=== PATIENT | male | born 1995 | race Two or more races ===

== ENCOUNTER 2021-08-29 09:42 | Emergency (ER) | payer OTHER, SELFPAY ==
--- NOTE | ~2021-08-29 | XR_ITS ---
EXAMINATION: XR ANKLE, LEFT CLINICAL INFORMATION: Fall with left ankle pain and swelling COMPARISON: None TECHNIQUE: Four views of the left ankle. FINDINGS: No fracture or dislocation. The ankle mortise is congruent. Ankle joint effusion present. Prominent medial soft tissue swelling. XR/XR ankle LT min 3V IMPRESSION: Medial soft tissue swelling with ankle joint effusion. No acute osseous abnormality.
[2021-08-29 10:28] VITALS: BP 115/66; PULSE 61; RESP 18; TEMP 36.1; O2SAT 99; BMI 25.1
--- NOTE | 2021-08-29 10:43 | ED.LOWEXIN ---
HPI - Extremity Injury (Lower) General Chief Complaint: Extremity Injury, Lower Stated Complaint: lt ankle injury Time Seen by Provider: 08/29/21 10:43 Source: patient Mode of arrival: ambulatory Limitations: no limitations History of Present Illness HPI Narrative: 25-year-old male came in for evaluation of left ankle injury. Patient slipped and fell in the mud at 02:00 today, twisting his left ankle, striking the ankle in the edge of shed, complaining of left ankle pain with difficulty walking. No other injuries no head or neck injury. Related Data Allergies Allergy/AdvReac Type Severity Reaction Status Date / Time amoxicillin Allergy Rash Verified 08/29/21 10:31 Review of Systems Review of Systems: All other systems are reviewed and are negative Constitutional: Reports as per HPI and Reports no additional constitutional complaints Eyes: Reports as per HPI and Reports no additional eye complaints Reports system reviewed and no additional complaints, except as documented Cardiovascular: Reports as per HPI and Reports no additional cardiovascular complaints Respiratory: Reports as per HPI and Reports no additional respiratory complaints Gastrointestinal: Reports as per HPI and Reports no additional gastrointestinal complaints Genitourinary: Reports no additional female genitourinary complaints Musculoskeletal: Reports no additional musculoskeletal complaints Skin/Breast: Reports system reviewed and no additional complaints, except as docu Psychiatric: Reports no additional psychiatric complaints Endocrine: Reports no additional endocrine complaints Hematologic/Lymphatic: Reports no additional hematologic/lymphatic complaints Allergic/Immunologic: Reports no additional allergic/immunologic complaints Reports system reviewed and no additional complaints, except as documented and Reports Abnormal speech present [facility] Past Medical History Medical History No known health problems Social History Social History Advance Directives: No Advance Directives Information Provided: No Physical Exam Vital Signs: Vital Signs: Last Vital Signs Temp 97.0 F 08/29/21 10:28 Pulse 61 08/29/21 10:28 Resp 18 08/29/21 10:28 BP 115/66 08/29/21 10:28 Pulse Ox 99 08/29/21 10:28 Body Mass Index 25.1 vital signs have been reviewed as appeared to be correct. Blood pressure normal. Heart rate normal. Respiration rate normal. Temperature normal. Oxygen saturation normal. Appearance: Alert. Oriented X3. No acute distress. Head: Normal external exam. Normocephalic. Atraumatic. No Luz signs noted. No raccoon eyes noted Eyes: PERRLA. EOMI. Conjunctiva and sclera normal. Eyelids normal. ENT: TM's Normal. Pharynx normal. Uvula midline. Moist mucous membranes. No trismus noted. No drooling noted. No muffled voice noted. Neck: Normal inspection. Neck supple. FROM. No adenopathy. Thyroid Normal. No meningeal signs. No neck mass noted. CVS: Normal heart rate and rhythm. Heart sound normal. No murmurs noted. Pulses normal throughout. Respiratory: No respiratory distress. Painless inspiration. Breath sounds normal. No wheezes/rales/rhonchi noted. Chest nontender. No accessory muscle usage noted or decreased air movement noted. Abdomen: Soft and nontender. Bowel sounds normal in all 4 quadrants. No distention noted. No organomegaly noted. No visible injury noted. Back: No CVA tenderness. Full range of motion noted. Skin: Skin warm and dry. Normal skin color. Normal skin turgor. No rashes/lesions/lacerations noted. Extremities: Left ankle swelling, tenderness, no step-off, no deformity, neurovascular exam of left foot is intact.. Neuro: Oriented X 3. Cranial nerve exam: II-XII are grossly intact No motor deficit. No sensory deficit. Reflexes normal. Course Course Course Narrative: Assessment and plan. Left ankle sprain. Darrick wrap, elevation, ice, NSAIDs. MDM - Extremity Injury (Lower) Medical Records Attestation: I reviewed the patient's medical records. Imaging Data left knee x-ray: Radiologist's impression: Medial soft tissue swelling with ankle joint effusion. No acute osseous abnormality. Discharge Plan Discharge Clinical Impression: Ankle sprain and strain Patient Disposition: Home, Self-Care Instructions: Ankle Sprain (ED) Additional Instructions: use Darrick wrap, ice, elevation, NSAIDs. Referrals: Physician,None [Primary Care Provider] - 2 days Stand Alone Forms: Work/School Release
== END 2021-08-29 11:19 | disposition home or self-care (01) ==
PROVIDERS: Emergency Provider Emergency Medicine
DX: S93.402A Sprain of unspecified ligament of left ankle, initial encounter (principal); S96.912A Strain of unspecified muscle and tendon at ankle and foot level, left foot, initial encounter; X50.1XXA Overexertion from prolonged static or awkward postures, initial encounter; Y93.9 Activity, unspecified; Y92.9 Unspecified place or not applicable; Y99.9 Unspecified external cause status
CPT/HCPCS: 73610; 99283

== ENCOUNTER 2025-09-11 20:03 | Emergency (ER) | payer OTHER, SELFPAY ==
--- NOTE | ~2025-09-11 | XR_ITS ---
CLINICAL HISTORY: pain injury 3 views right hand Comparison: None Findings: There is a boxer's fracture of the distal aspect of the 5th metacarpal bone. No other fracture or dislocation.. No significant arthritic change. No erosions. No radiopaque foreign body. Impression: 1. Fifth metacarpal boxer's fracture. This document has been electronically signed by: Tony Sanchez MD on 09/11/2025 20:50:57
[2025-09-11 20:09] VITALS: BP 144/82; PULSE 87; RESP 18; TEMP 37.1; O2SAT 96; BMI 25.1
--- NOTE | 2025-09-11 20:54 | ED.EXTPRO ---
HPI - Extremity Problem General Chief complaint: Extremity Injury, Upper Stated complaint: right hand injury Time Seen by Provider: 09/11/25 20:20 Source: patient Limitations: no limitations History of Present Illness ED Provider: Jessica Collins PA-C HPI Narrative: 29-year-old male presents with right hand pain. Patient states he punched a wall, now having pain over dorsum of lateral hand. Patient able to move the 4th and 5th digits. Related Data Previous Rx's ?Medication ?Instructions ?Recorded ketorolac 10 mg tablet 10 mg PO Q6H PRN pain #20 tabs 09/11/25 oxycodone 5 mg tablet 5 mg PO Q8H PRN pain, severe #7 09/11/25 tabs Allergies Allergy/AdvReac Type Severity Reaction Status Date / Time amoxicillin Allergy Rash Verified 09/11/25 20:11 Review of Systems Review of Systems: Yes all other systems are reviewed and are negative Constitutional: Constitutional: Denies fatigue and Denies fever(s) Musculoskeletal: Musculoskeletal: Reports arthralgias, Reports joint swelling, Denies numbness and Denies tingling Neurologic: Denies numbness and Denies tingling Endocrine: Endocrine: Denies fatigue PMF Past Medical History Attestation statement: The following information was validated with the patient. Medical History No known health problems Social History Social History Smoked in Last 30 Days: Yes Use of substances other than those prescribed or required for medical reasons: No Advance Directives: No Advance Directives Information Provided: No Physical Exam Vital Signs: Vital Signs: Last Vital Signs Temp 98.7 F 09/11/25 20:09 Pulse 85 09/11/25 21:48 Resp 16 09/11/25 21:48 BP 139/90 H 09/11/25 21:48 Pulse Ox 98 09/11/25 21:48 O2 Del Method Room Air 09/11/25 21:48 BMI result Body Mass Index 25.1 Const: Other: Alert well-appearing Orientation/consciousness: patient oriented x3 Resp: Effort & Inspection: normal respiratory effort Cardio: Other: Normal peripheral perfusion Skin: Other: Warm dry no rash Neuro: General: patient oriented x3, gait normal, no focal motor deficits and CN's II-XI intact bilaterally Extrem: Other: Swelling and ecchymosis noted over the dorsum of the right hand inferior to the 4th and 5th digits, he is able to flex and extend at MCP, PIP and D IP, neurovascularly intact Psych: Other: Cooperative Medications Administered Discontinued Medications Generic Name Dose Route Start Last Admin Trade Name Rashmi PRN Reason Stop Dose Admin Ketorolac Tromethamine 15 mg 09/11/25 21:44 09/11/25 21:52 Ketorolac Tromethamine 15 Mg/Ml Vial IM 09/11/25 21:45 15 mg ONCE ONE Administration Lidocaine HCl 5 ml 09/11/25 20:55 09/11/25 21:22 Lidocaine Hcl 1 % 20 Ml Vial INFILTRATI 09/11/25 20:56 5 ml ONCE ONE Administration Oxycodone HCl 5 mg 09/11/25 21:44 09/11/25 21:52 Oxycodone Hcl Immed Release 5 Mg Tablet PO 09/11/25 21:45 5 mg ONCE ONE Administration Medical Decision Making Medical Decision Making MDM Narrative: 29-year-old male presents with right hand pain. Patient states he punched a wall, now having pain over dorsum of lateral hand. Patient able to move the 4th and 5th digits. No chronic issues History: Per patient I have considered the following differential diagnoses: Fracture, dislocation, contusion, sprain Plan: X-ray ordered from triage, the patient has sustained a boxer's fracture, we will place in an ulnar gutter splint, send with pain meds and give follow up with ortho I have independently reviewed the following tests: X-ray right hand:Findings: There is a boxer's fracture of the distal aspect of the 5th metacarpal bone. No other fracture or dislocation.. No significant arthritic change. No erosions. No radiopaque foreign body. Impression: 1. Fifth metacarpal boxer's fracture. Differential Diagnosis Differential Diagnoses: The differential diagnosis associated with the presentation includes See MDM Admission/Observation Consideration of admission/observation: Escalation of care including admission/observation considered Not applicable Radiology Impression Discussion of test interpretation with radiology: I have reviewed the radiologist's reading. Procedures Orthopedic Splinting/Casting Injury #1: Side: right Upper Extremity Injury Location: hand Upper Extremity Immobilizer: ulnar gutter Discharge Plan Discharge Clinical Impression: Boxer's fracture Qualifiers: Encounter type: initial encounter Fracture type: closed Qualified Code(s): S62.339A - Displaced fracture of neck of unspecified metacarpal bone, initial encounter for closed fracture Patient Disposition: Home, Self-Care Instructions: Boxer Fracture (ED) Additional Instructions: You sustained a boxer's fracture, see home care instructions. Keep the splint in place. I am providing you with a contact for our orthopedic service, call to schedule an appointment. Use the ketorolac as needed for pain this is an anti-inflammatory take it with food. Use the oxycodone as needed for further pain. Prescriptions: New oxycodone 5 mg tablet 5 mg PO Q8H PRN (Reason: pain, severe) Qty: 7 0RF Rx Instructions: Partial Fill upon patient request. ketorolac 10 mg tablet 10 mg PO Q6H PRN (Reason: pain) Qty: 20 0RF Rx Instructions: maximum total duration of 5 days from all oral, intranasal, or parenteral formulations, patient received an intramuscular dose of Toradol here in the emergency room Referrals: Lisbeth Montemayor MD [Physician, Hand Surgery] Referral Note: right boxer's fracture Interventions: ED Discharge Assessment Last Done: 09/11/25 22:02 Print Language: Macedonian
[2025-09-11] MEDS: Lidocaine HCl 1 % 20 ML VIAL 5 ML INFILTRATI (21:22)
[2025-09-11 21:48] VITALS: BP 139/90; PULSE 85; RESP 16; O2SAT 98
[2025-09-11] MEDS: oxyCODONE HCl Immed Release 5 MG TABLET PO (21:52)
[2025-09-11 22:02] VITALS: BP 139/90; PULSE 85; RESP 16; TEMP 36.6; O2SAT 98
== END 2025-09-11 22:02 | disposition home or self-care (01) ==
PROVIDERS: Emergency Provider Emergency Medicine
DX: S62.336A Displaced fracture of neck of fifth metacarpal bone, right hand, initial encounter for closed fracture (principal); W22.09XA Striking against other stationary object, initial encounter; Y93.9 Activity, unspecified; Y92.9 Unspecified place or not applicable; Y99.9 Unspecified external cause status; M79.641 Pain in right hand
CPT/HCPCS: 73130; 96372; 99284; J1885; J2003

== ENCOUNTER → 2025-09-11 20:20 | Outpatient (BNV) | payer OTHER, SELFPAY | PROVIDERS: Emergency Provider Emergency Medicine; Visit Provider Radiology Diagnostic Radiology | DX: S62.306A Unspecified fracture of fifth metacarpal bone, right hand, initial encounter for closed fracture (principal) | CPT/HCPCS: 73130 ==

== ENCOUNTER 2025-09-17 15:13 | Outpatient (REF) | payer OTHER, SELFPAY | END 2025-09-17 15:14 | disposition home or self-care (01) | LOC: HO.HOSX 15:13 | DX: Z13.89 Encounter for screening for other disorder (principal) ==

== ENCOUNTER 2025-09-21 08:18 | Outpatient (AMB) | payer OTHER, SELFPAY ==
[2025-09-21 08:28] VITALS: BMI 25.1
--- NOTE | 2025-09-21 08:28 | MHC.OFFVIS ---
Vital Signs 09/21/25 08:28 Height 5 ft 9 in Weight 170 lb BMI 25.1 Intake Visit Reasons: FC: RT 5th Metacarpal Boxer's Fx, DOI:09/11/25 Intake Note: Ovi is a 29 year old right hand dominant male, new patient, who presents today for an ED Follow Up status post Right 5th Metacarpal Boxer's Fracture, DOI:09/11/25 . Patient presented to [facility] ED on 09/11/25 complaining of Right 4th & 5th Digit Pain on the dorsum of the lateral hand from punching a wall. Patient was placed in an ulnar gutter splint. Today, patient complains of pain at the MCP of his 5th digit. He denies any finger locking, numbness, tingling. He is not taking anything for pain. He denies any other surgeries or injuries to the right hand. Patient works as an EMT. Allergies amoxicillin Allergy (Verified 09/21/25 08:28) Rash HPI HPI FC: RT 5th Metacarpal Boxer's Fx, DOI:09/11/25: Details: Ovi is a 29 year old right hand dominant male, new patient, who presents today for an ED Follow Up status post Right 5th Metacarpal Boxer's Fracture, DOI:09/11/25 . Patient presented to [facility] ED on 09/11/25 complaining of Right 4th & 5th Digit Pain on the dorsum of the lateral hand from punching the site of an ambulance. Patient reports he began to experience very significant pain immediately after injury, and was evaluated in the emergency department, where x-rays revealed displaced right 5th metacarpal neck fracture. Patient was placed in an ulnar gutter splint. Today, patient complains of pain at the MCP of his 5th digit. He denies any finger locking, numbness, tingling. He is not taking anything for pain. He denies any other surgeries or injuries to the right hand. 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 [facility] Medical History No known health problems Social History (Updated 09/21/25 @ 08:34 by ALLY Jimenez) Alcohol intake: current Patient Tobacco Use Status: Never used Tobacco e-Cigarette/Vaping Use: Currently Using Current occupational status: employed Current occupation: rt handed, EMT Review of Systems Const All systems reviewed & are unremarkable except as noted in HPI and below Physical Exam Vital Signs: BMI result Body Mass Index 25.1 Extrem Other: Patient is alert, oriented, and in no acute distress. Neuro: Normal sensation of the tips of all digits of the right hand at this time Vascular: Cap refill brisk Pain: Tenderness to palpation about right 5th metacarpal neck Discomfort with range of motion of the right hand ROM: With encouragement, patient is able to get close to making a closed fist, can extend all digits of the right hand fully and without difficulty Skin: No lacerations or abrasions. General: There is a head in palm deformity noted of the right 5th metacarpal No ecchymosis, erythema, or evidence of infection. Psych: Appears grossly normal Affect normal Attitude cooperative Results Reviewed Results Reviewed: X-rays obtained in the office today and independently reviewed by me, Juan Robertson PA-C, demonstrate displaced right 5th metacarpal neck fracture with approximately 50 degrees of apex dorsal angulation. Assessment & Plan Assessment & Plan (1) Displaced fracture of neck of right fifth metacarpal bone: Code(s): S62.336A - Displaced fracture of neck of fifth metacarpal bone, right hand, initial encounter for closed fracture Category: Medical Plan 1. Displaced right 5th metacarpal neck fracture Date of injury 09/11/2025 I educated the patient about the condition. I discussed both operative and nonoperative treatment options. The patient would like to proceed with surgery. The risks and benefits of operative treatment were discussed with the patient and the patient wishes to proceed with surgery. These risks include, but are not limited to, risk of damage to blood vessels, nerves, tendons, infection, recurrence, incomplete relief of preoperative symptoms, persistent pain, possible need for further surgery, and the risks associated with regional blocks and/or anesthesia. Plan is to take the patient to the operating room on 09/28/2025 for the following procedures: 1. Right 5th metacarpal CRPP versus ORIF under general anesthesia All of the preoperative paperwork including the consent was discussed today. All of the patient's questions were answered in the clinic today. The patient understands that they will be in contact with our surgical processor to discuss scheduling their procedure. Patient denies diabetes, blood thinners, asthma, heart issues, lung issues, kidney issues Patient does not take any medications on a regular basis Patient does report use of a vape, in his educated on the potential effects of smoking on bony healing and the benefits of smoking cessation Orders: Orders XR hand RT min 3V Today M79.641 - Pain in right hand Coding Level of Care Code New Pt Level 4 (88644) Diagnoses Displaced fracture of neck of right fifth metacarpal bone S62.336A
== END 2025-09-21 09:24 | disposition home or self-care (01) ==
DX: S62.336A Displaced fracture of neck of fifth metacarpal bone, right hand, initial encounter for closed fracture (principal)
CPT/HCPCS: 99204

== ENCOUNTER → 2025-09-21 08:19 | Outpatient (BNV) | payer OTHER, SELFPAY | PROVIDERS: Visit Provider Radiology Diagnostic Radiology | DX: M79.641 Pain in right hand (principal) | CPT/HCPCS: 73130 ==

== ENCOUNTER 2025-09-21 08:42 | Outpatient (REF) | payer OTHER, SELFPAY ==
--- NOTE | ~2025-09-21 | XR_ITS ---
EXAMINATION: XR HAND 3 OR MORE VIEWS RIGHT HISTORY: M79.641 - Pain in right hand COMPARISON: Comparison is made with the prior examination dated 09/11/2025. FINDINGS: Three views of the right hand are submitted. Osseous mineralization is normal. Again seen is a comminuted fracture of the 5th metacarpal neck. No significant callus formation is noted. The fracture lines remain visible. The joint spaces are preserved. The soft tissues are unremarkable. XR/XR hand RT min 3V IMPRESSION: Comminuted fracture of the 5th metacarpal neck without significant change. Electronically signed by: Marcio Garcia MD 09/21/2025 08:42 AM [facility]
== END 2025-09-21 08:43 | disposition home or self-care (01) ==
LOC: HO.HOSX 08:42
DX: S62.336A Displaced fracture of neck of fifth metacarpal bone, right hand, initial encounter for closed fracture (principal); W22.09XA Striking against other stationary object, initial encounter
CPT/HCPCS: 73130; 99202

== ENCOUNTER 2025-09-28 08:39 | Day surgery (SDC) | payer OTHER, SELFPAY ==
--- NOTE | ~2025-09-28 | FL_ITS ---
EXAMINATION: XR FLUOROSCOPY WITH IMAGES CLINICAL INFORMATION: ORIF COMPARISON: X-ray 09/21/2025 TECHNIQUE: Fluoroscopy time: 27 seconds DAP: 0.7 mGycm2 Images: 5 FINDINGS: Fluoroscopy provided in the operating room. Images related to internal fixation of a fifth metacarpal fracture. FL/FL guidance in OR IMPRESSION: Fluoroscopy provided in the operating room. See surgical report for details. Electronically signed by: Jayden Stern MD 09/30/2025 09:13 AM GUILLERMO
--- NOTE | 2025-09-28 08:53 | P.OP_ITS ---
Operative Note Operative Note Date of Service: 09/28/25 Narrative: Operative Note Narrative: Preop diagnosis: 1. Right 5th Metacarpal shaft fracture Postop diagnosis: Same Procedure: 1. Right 5th Metacarpal fracture closed reduction percutaneous pinning 2. Closed manipulation of right 5th MCP joint 3. Ulnar nerve block Surgeon: Lisbeth Montemayor MD Plumbing Installer: None Anesthesia: General Anesthesia Findings: Metacarpal fracture Implants: 0.062 K-wire x1 Tourniquet time: None EBL: Minimal Specimen: None Drains: None Complications: None Disposition: Brought to the recovery room in stable condition Plan: Follow-up in 10-14 days for a wound check, postop radiographs and for placement in a short-arm finger spica cast Anticipate K-wire removal in 4 weeks based on interval bony healing Educate the patient that full fracture healing anticipated in approximately 8-12 weeks. Indications: The patient is 29 years old with right 5th metacarpal shaft fracture, distal shaft with the injury being sustained about 2-1/2 weeks ago . The risks and benefits of operative treatment, including but not limited to risk of damage to blood vessels, nerves, tendons, infection, recurrence, delayed or nonunion of fracture, persistent pain or numbness, incomplete resolution of preoperative symptoms, or need for further surgery were discussed with the patient and they wished to proceed with surgery. Procedure: Once consent was obtained patient was brought back to the operating suite and placed in the operating table in a supine position. . Perioperative antibiotics and general anesthesia was administered by the anesthesia team. A tourniquet was applied to the proximal aspect of the right upper extremity and the limb was prepped and draped in a standard surgical fashion. Tourniquet was not inflated during the case. The FluoroScan was used during the case to assist with our fracture reduction and placement of all implants. A closed reduction was performed on the patient's right 5th metacarpal shaft fracture. There was already some evidence of early bony healing, but we were able to get a satisfactory reduction. He already also had quite a bit of stiffness with the 5th MCP joint being held in extension for extended period of time. I patiently performed a closed manipulation to bring that 5th MCP joint down into about 90 degrees of flexion. This then allowed me to place a single 0.062 K-wire retrograde through the head of the right 5th metacarpal advancing proximally across the fracture site to the base of the metacarpal. A 2nd K-wire was deemed unnecessary. Fracture alignment was assessed for both angular and rotational malalignment. Once satisfied with our fracture reduction and implant placement, the K-wires were bent and cut short and pin caps applied. Final fluoroscopic images were then obtained. The wounds were copiously irrigated with normal saline. An ulnar nerve block was then performed by infiltrating about the ulnar nerve at the wrist with some 1% lidocaine with epinephrine for postop pain control. A Sterile dressing and short volar splint was applied. The patient appears to have tolerated the procedure well and with no complications. All digits were well vascularized at the conclusion of the case.
--- NOTE | 2025-09-28 08:53 | MHC.SHP ---
Pre-Procedural Eval Section A - 24 Hr Update-Section A only Date of Service: 09/28/25 The patient is an INPATIENT: No Changes since office visit: No Cold of Flu in the past 2 weeks, No New Medical Problems, No Changes in Medication and No Patient answered all questions The patient has been examined within 24 hours of the surgical procedure. The History & Physical has been completed within 30 days and I have reviewed it.: Yes Section B - Complete if H&P > 30 days Chief Complaint: Displaced fracture of neck of fifth metacarpal bon Allergies: Allergies Allergy/AdvReac Type Severity Reaction Status Date / Time amoxicillin Allergy Rash Verified 09/21/25 08:28 Plan I have reviewed the history and physical and performed a pertinent physical examination on my patient. No changes have occurred unless specified. Time Spent With Patient Time: Total time managing care of this patient today ____ minutes.
[2025-09-28] MEDS: Lactated Ringers 1,000 ML 100 ML IVCONT (09:35)
[2025-09-28 09:42] VITALS: BP 124/81; PULSE 77; RESP 18; TEMP 37; O2SAT 98; BMI 25.7
--- NOTE | 2025-09-28 10:21 | P.CONAN_ITS ---
Documented by User: Lucila Terrell NP 09/22/25 11:34 HPI - Anesthesia Eval Consult details Narrative: 29 yr old male for right 5th CRPP vs ORIF Metacarpal PMFSH Active Problems Active Problems: All Active Problems Displaced fracture of neck of right fifth metacarpal bone (Acute) Past Medical History Medical History (Updated 09/21/25 @ 09:05 by LUISA Stock) No known health problems Surgical History Surgical History (Updated 09/28/25 @ 09:44 by Bina Woodard RN) History of esophagogastroduodenoscopy (EGD) Social History Social History (Updated 09/21/25 @ 08:34 by ALLY Jimenez) Are you a primary director of health care marketing to a significant other at home: No Do you presently have visiting nurse or other home services: No Alcohol intake: current Patient Tobacco Use Status: Current everyday Tobacco user Smoked in Last 30 Days: Yes e-Cigarette/Vaping Use: Currently Using Patient Interested in Nicotine Replacement: No Have you been hit, kicked, punched, or otherwise hurt by someone within the past year? If so, by whom?: No Are you DNR?: No Advance Directives: No Advance Directives Information Provided: Yes Current occupational status: employed Current occupation: rt handed, EMT Meds Allergies Allergy/AdvReac Type Severity Reaction Status Date / Time amoxicillin Allergy Rash Verified 09/28/25 09:44 Home Medications ?Medication ?Instructions ?Recorded ?Confirmed ?Last Taken ?Type No Known Home Meds 09/28/25 09/28/25 Un known History Documented by User: Nancy Vick DO 09/28/25 10:22 PMF Past Medical History Medical History (Updated 09/21/25 @ 09:05 by LUISA Stock) No known health problems Family History Family history of problems with anesthesia: No Surgical History Surgical History (Updated 09/28/25 @ 09:44 by Bina Woodard RN) History of esophagogastroduodenoscopy (EGD) History of Problems with Anesthesia: No Social History Social History (Updated 09/21/25 @ 08:34 by ALLY Jimenez) Are you a primary director of health care marketing to a significant other at home: No Do you presently have visiting nurse or other home services: No Alcohol intake: current Patient Tobacco Use Status: Current everyday Tobacco user Smoked in Last 30 Days: Yes e-Cigarette/Vaping Use: Currently Using Patient Interested in Nicotine Replacement: No Have you been hit, kicked, punched, or otherwise hurt by someone within the past year? If so, by whom?: No Are you DNR?: No Advance Directives: No Advance Directives Information Provided: Yes Current occupational status: employed Current occupation: rt handed, EMT Meds Allergies Allergy/AdvReac Type Severity Reaction Status Date / Time amoxicillin Allergy Rash Verified 09/28/25 09:44 Home Medications ?Medication ?Instructions ?Recorded ?Confirmed ?Last Taken ?Type No Known Home Meds 09/28/25 09/28/25 Un known History Exam Exam Date and Time: 09/28/25 1021 Height,Weight and Vital Signs: Height 5 ft 9 in Weight 79 kg Vital Signs Temperature 98.6 F 09/28/25 09:42 Pulse Rate 77 09/28/25 09:42 Respiratory Rate 18 09/28/25 09:42 Blood Pressure 124/81 09/28/25 09:42 Pulse Oximetry 98 09/28/25 09:42 Oxygen Delivery Method Room Air 09/28/25 09:42 Temperature 98.6 F 09/28/25 09:42 Pulse Rate 77 09/28/25 09:42 Respiratory Rate 18 09/28/25 09:42 Blood Pressure 124/81 09/28/25 09:42 Pulse Oximetry 98 09/28/25 09:42 Oxygen Delivery Method Room Air 09/28/25 09:42 Airway Mallampati Class: II TM Dist: >3cm Neck ROM: Full Loose/Missing/Broken Teeth: No (patient denies any loose or broken teeth) Heart: S1S2 Lungs: CTAB Assessment and Plan Assessment Anesthesia Assessment: Anesthesia Plan Discussed and Chart Reviewed Final Anesthetic Review Family History of Problems with Anesthesia: No History of Problems with Anesthesia: No NPO: Yes ASA Class: II Final Preanesthetic Review: No Changes in Pt Med Stat, Meds/Allgs Chart Reviewed, Consent Obtained/Reviewed and Anes Risks/Benef Reviewed Patient Risk: Low Procedure Risk: Low Anesthetic Plan Anesthetic Plan: GA and Agree w/ Assess. and Plan Disposition: Standard PACU
[2025-09-28 11:41] VITALS: BP 137/76; PULSE 53; RESP 14; TEMP 36.3; O2SAT 100
[2025-09-28 11:46] VITALS: BP 113/65; PULSE 55; RESP 15; O2SAT 100
[2025-09-28 11:51] VITALS: BP 115/64; PULSE 57; RESP 17; O2SAT 99
[2025-09-28 11:56] VITALS: BP 127/78; PULSE 70; RESP 20; O2SAT 100
[2025-09-28 12:11] VITALS: BP 135/89; PULSE 67; RESP 22; TEMP 36.5; O2SAT 100
== END 2025-09-28 12:36 | disposition home or self-care (01) ==
PROVIDERS: Visit Provider Orthopaedic Surgery
PROC: (CPT 26608; principal; 2025-09-28 10:20)
DX: S62.336A Displaced fracture of neck of fifth metacarpal bone, right hand, initial encounter for closed fracture (principal); M79.641 Pain in right hand; M25.641 Stiffness of right hand, not elsewhere classified; W22.09XA Striking against other stationary object, initial encounter; Y93.89 Activity, other specified; Y92.9 Unspecified place or not applicable; Y99.9 Unspecified external cause status; F17.290 Nicotine dependence, other tobacco product, uncomplicated; Z88.1 Allergy status to other antibiotic agents
CPT/HCPCS: 26608; J0131; J0690; J1100; J2003; J2004; J2250; J2405; J2704; J3010

== ENCOUNTER → 2025-09-28 08:39 | Outpatient (BNV) | payer OTHER, SELFPAY | PROVIDERS: Visit Provider Orthopaedic Surgery | DX: S62.326A Displaced fracture of shaft of fifth metacarpal bone, right hand, initial encounter for closed fracture (principal) | CPT/HCPCS: 26608 ==

== ENCOUNTER 2025-10-12 07:58 | Outpatient (REF) | payer OTHER, SELFPAY ==
--- NOTE | ~2025-10-12 | XR_ITS ---
EXAMINATION: XR HAND, RIGHT CLINICAL INFORMATION: M79.641 - Pain in right hand COMPARISON: X-ray 09/21/2025 TECHNIQUE: PA, lateral, and oblique views of the right hand. FINDINGS: There is internal fixation of the comminuted fifth metatarsal neck fracture. Hardware is intact. Improved near anatomic alignment. Mild callus formation. Mild soft tissue swelling. XR/XR hand RT min 3V IMPRESSION: Healing changes in the fifth metacarpal fracture, status post internal fixation. Electronically signed by: Jayden Stern MD 10/14/2025 07:37 AM EST
== END 2025-10-12 07:59 | disposition home or self-care (01) ==
LOC: HO.HOSX 07:58
DX: S62.336A Displaced fracture of neck of fifth metacarpal bone, right hand, initial encounter for closed fracture (principal); X58.XXXA Exposure to other specified factors, initial encounter
CPT/HCPCS: 73130; 99212

== ENCOUNTER 2025-10-12 13:50 | Outpatient (AMB) | payer OTHER, SELFPAY ==
--- NOTE | 2025-10-12 14:06 | A.OFFVIS_ITS ---
Vital Signs 10/12/25 14:09 Height 5 ft 9 in Weight 170 lb BMI 25.1 Intake Visit Reasons: PO-Rt 5th MC CRPP 09/28/25 Intake Note: Ovi is a 30 year old right hand dominant male who presents today for a Post- Operative Visit status post Right 5th Metacarpal CRPP, DOS: 09/28/[address] Montemayor. States his pain is tolerable and is doing well. Splints and dressing removed in office. Xrays updated in office Allergies amoxicillin Allergy (Verified 10/12/25 14:10) Rash HPI HPI PO-Rt 5th MC CRPP 09/28/25: Details: Ovi is a 30 year old right hand dominant male who presents today for a Post- Operative Visit status post Right 5th Metacarpal CRPP, DOS: 09/28/[address] Montemayor. States his pain is tolerable, rates worst pain he experiences at a 3 to 4/10, and is doing well. Splints and dressing removed in office. Xrays updated in office. [facility] Medical History (Updated 09/21/25 @ 09:05 by LUISA Stock) No known health problems Surgical History History of esophagogastroduodenoscopy (EGD) Social History Are you a primary insurance healthcare consultant to a significant other at home: No Do you presently have visiting nurse or other home services: No Alcohol intake: current Patient Tobacco Use Status: Current everyday Tobacco user e-Cigarette/Vaping Use: Currently Using Current occupational status: employed Current occupation: rt handed, EMT Review of Systems Const All systems reviewed & are unremarkable except as noted in HPI and below Physical Exam Vital Signs: BMI result Body Mass Index 25.1 Extrem Other: Patient is alert, oriented, and in no acute distress. Neuro: Normal sensation of the tips of all digits of the right hand at this time Vascular: Cap refill brisk Pain: Minimal Tenderness to palpation about right 5th metacarpal neck Very mild Discomfort with range of motion of the right hand ROM: With encouragement, patient is able to get close to making a closed fist, can extend all digits of the right hand fully and without difficulty Skin: Pin site clean, dry, intact No lacerations or abrasions. General: Pin does appear to have pulled out by a proximally 1 to 1-1/2 cm from surgery No ecchymosis, erythema, or evidence of infection. Psych: Appears grossly normal Affect normal Attitude cooperative Results Reviewed Results Reviewed: X-rays obtained in the office today and independently reviewed by me, Juan Robertson PA-C, demonstrate right 5th metacarpal fracture status post CRPP with fracture alignment in satisfactory clinical alignment. However, there is approximately 1-1.5 cm of pin retraction. Assessment & Plan Assessment & Plan (1) Displaced fracture of neck of right fifth metacarpal bone: Code(s): S62.336A - Displaced fracture of neck of fifth metacarpal bone, right hand, initial encounter for closed fracture Category: Medical Plan 1. Status post CRPP of right 5th metacarpal DOS 09/28/2025 Case was discussed with Dr. Montemayor, and a collaborative treatment plan was formed: At this time, patient will be placed into a short-arm cast Patient is educated on proper cast care and precautions No need for pulling pin at this time, as it is still stabilizing the fracture in the fracture is in satisfactory clinical alignment per Dr. Montemayor 2 lb weight limit until follow-up Patient is educated on the importance of keeping pin site clean and dry Patient understands this and is amenable to this plan Follow-up in 2 weeks with repeat x-rays for reassessment, anticipate pulling pin at that time, sooner with any acute concerns Orders: Orders XR hand RT min 3V 10/12/25 M79.641 - Pain in right hand Coding Level of Care Code Global (14044) Diagnoses Displaced fracture of neck of right fifth metacarpal bone S62.336A
[2025-10-12 14:09] VITALS: BMI 25.1
== END 2025-10-12 15:05 | disposition home or self-care (01) ==
LOC: HO.HOS 13:51
DX: S62.336A Displaced fracture of neck of fifth metacarpal bone, right hand, initial encounter for closed fracture (principal)
CPT/HCPCS: 99024

== ENCOUNTER → 2025-10-12 13:52 | Outpatient (BNV) | payer OTHER, SELFPAY | PROVIDERS: Visit Provider Radiology Diagnostic Ultrasound | DX: S62.306D Unspecified fracture of fifth metacarpal bone, right hand, subsequent encounter for fracture with routine healing (principal) | CPT/HCPCS: 73130 ==

== ENCOUNTER 2025-10-26 08:21 | Outpatient (REF) | payer OTHER, SELFPAY ==
--- NOTE | ~2025-10-26 | XR_ITS ---
EXAMINATION: XR HAND 3 OR MORE VIEWS RIGHT HISTORY: M79.641 - Pain in right hand COMPARISON: Comparison is made with the prior examination dated 10/12/2025. FINDINGS: Three views of the right hand are submitted. There is new marked osteopenia of the 5th metacarpal head. Again seen is internal fixation of the previously seen fracture of the 5th metacarpal with a K wire. The fracture lines remain visible. The joint spaces are preserved. The soft tissues are unremarkable. XR/XR hand RT min 3V IMPRESSION: Internal fixation of a fracture of the 5th metacarpal. There is new marked osteopenia of the 5th metacarpal head. While this may be reactive in nature, infection is not excluded. Clinical correlation is recommended. Electronically signed by: Marcio Garcia MD 10/26/2025 02:00 PM [facility]LLERMO BRISENO
== END 2025-10-26 08:22 | disposition home or self-care (01) ==
LOC: HO.HOSX 08:21
DX: S62.336D Displaced fracture of neck of fifth metacarpal bone, right hand, subsequent encounter for fracture with routine healing (principal); X58.XXXD Exposure to other specified factors, subsequent encounter
CPT/HCPCS: 73130; 99212

== ENCOUNTER 2025-10-26 13:29 | Outpatient (AMB) | payer OTHER, SELFPAY ==
--- NOTE | 2025-10-26 13:42 | A.OFFVIS_ITS ---
Vital Signs 10/26/25 13:46 Height 5 ft 9 in Weight 175 lb BMI 25.8 Intake Visit Reasons: PO-Rt 5th MC CRPP 09/28/25-W/XRAYS Intake Note: Ovi is a 30 year old right hand dominant male who presents today for a Post- Operative Visit status post Right 5th Metacarpal CRPP, DOS: 09/28/[address] Montemayor. At his last visit he was placed in a short arm cast. He was advised to remain at a 2 lb weight limit until follow-up. At today's visit we will be removing the patient's pin. Patient states that the right ring finger does have a numbness and tingling. Allergies amoxicillin Allergy (Verified 10/12/25 14:10) Rash HPI HPI PO-Rt 5th MC CRPP 09/28/25-W/XRAYS: Details: Ovi is a 30 year old right hand dominant male who presents today for a Post- Operative Visit status post Right 5th Metacarpal CRPP, DOS: 09/28/[address] Montemayor. At his last visit he was placed in a short arm cast. He was advised to remain at a 2 lb weight limit until follow-up. At today's visit we will be removing the patient's pin. Patient states that the right ring finger does have a numbness and tingling. Patient denies any ongoing pain [facility] Medical History (Updated 09/21/25 @ 09:05 by LUISA Stock) No known health problems Surgical History History of esophagogastroduodenoscopy (EGD) Social History Are you a primary day care aide to a significant other at home: No Do you presently have visiting nurse or other home services: No Alcohol intake: current Patient Tobacco Use Status: Current everyday Tobacco user e-Cigarette/Vaping Use: Currently Using Current occupational status: employed Current occupation: rt handed, EMT Physical Exam Vital Signs: BMI result Body Mass Index 25.8 Extrem Other: Patient is alert, oriented, and in no acute distress. Neuro: Normal sensation of the tips of all digits of the right hand at this time Vascular: Cap refill brisk Pain: No Tenderness to palpation about right 5th metacarpal neck No further Discomfort with range of motion of the right hand ROM: With encouragement, patient is able to get close to making a closed fist, can extend all digits of the right hand fully and without difficulty Skin: Pin site clean, dry, intact No lacerations or abrasions. General: Pin location stable since previous evaluation, was significantly retracted at previous evaluation No ecchymosis, erythema, or evidence of infection. Psych: Appears grossly normal Affect normal Attitude cooperative Results Reviewed Results Reviewed: X-rays obtained in the office today and independently reviewed by me, Juan Robertson PA-C, demonstrate right 5th metacarpal fracture status post CRPP with fracture alignment in satisfactory clinical alignment with evidence of interval bony healing. However, there is approximately 1-1.5 cm of pin retraction. Assessment & Plan Assessment & Plan (1) Displaced fracture of neck of right fifth metacarpal bone: Code(s): S62.336A - Displaced fracture of neck of fifth metacarpal bone, right hand, initial encounter for closed fracture Category: Medical Plan 1. Status post CRPP of right 5th metacarpal DOS 09/28/2025 Case was discussed with Dr. Montemayor, and a collaborative treatment plan was formed: Pins pulled in the office today without issue Patient was educated on proper pin site care and precautions 2 lb weight limit until follow-up Patient was provided with a Velcro wrist splint to wear with daytime activities as well as eber tape to use for the ring and small fingers whenever awake Patient understands this and is amenable to this plan Follow-up in 4 weeks with repeat x-rays for reassessment, sooner with any acute concerns Orders: Orders XR hand RT min 3V 10/26/25 M79.641 - Pain in right hand Coding Level of Care Code Global (31779) Diagnoses Displaced fracture of neck of right fifth metacarpal bone S62.336A
[2025-10-26 13:46] VITALS: BMI 25.8
== END 2025-10-26 14:31 | disposition home or self-care (01) ==
LOC: HO.HOS 13:30
DX: S62.336A Displaced fracture of neck of fifth metacarpal bone, right hand, initial encounter for closed fracture (principal)
CPT/HCPCS: 99024

== ENCOUNTER → 2025-10-26 13:31 | Outpatient (BNV) | payer OTHER, SELFPAY | PROVIDERS: Visit Provider Radiology Diagnostic Radiology | DX: S62.306A Unspecified fracture of fifth metacarpal bone, right hand, initial encounter for closed fracture (principal); M85.841 Other specified disorders of bone density and structure, right hand | CPT/HCPCS: 73130 ==